=== PATIENT | female | born 1990 | race Two or more races ===

== ENCOUNTER 2020-08-26 11:03 | Emergency (ER) | payer OTHER ==
[2020-08-26] MEDS ORDERED: DIPH/PERTUSS(ACELL)/TETANUS VAC/PF 0.5 ML SYR (>=10YO) IM ONE (13:01)
--- NOTE | 2020-08-26 13:03 | ER Document Report ---
ED Medical Screen (RME) - General Chief Complaint: Ankle Injury Stated Complaint: FOOT INJURY Time Seen by Provider: 08/26/20 12:55 Mode of Arrival: Wheelchair Information source: Patient Notes: HPI; 29-year-old female presents to the emergency room with a laceration to her left foot. Patient states she dropped silverware on the floor when she accidentally kicked a knife that went across the floor cutting her foot. Bleeding is controlled. Unknown last tetanus shot. PE: Alert and oriented x3. Lungs: Clear to auscultation without rales, rhonchi, wheezes. Heart: Tachycardic without murmurs, rubs, gallops. Patient with a 2 cm laceration noted along the medial aspect of the left foot. Bleeding is controlled. I have greeted and performed a rapid initial assessment of this patient. A comprehensive ED assessment and evaluation of the patient, analysis of test results and completion of the medical decision making process will be conducted by additional ED providers. I have specifically instructed the patient or family members with the patient to immediately return to any nursing staff should anything change in the patient's condition or with their chief complaint. TRAVEL OUTSIDE OF THE [place] IN LAST 30 DAYS: No - Related Data Allergies/Adverse Reactions: cat dander Allergy (Verified 08/26/20 12:53) pineapple Allergy (Verified 08/26/20 12:53) Past Medical History - Social History Frequency of alcohol use: Occasional Physical Exam - Vital signs Vitals: Temp Pulse Resp BP Pulse Ox 98.4 F 108 H 18 141/83 H 98 08/26/20 11:11 08/26/20 11:11 08/26/20 11:11 08/26/20 11:11 08/26/20 11:11 Course - Vital Signs Vital signs: Temp Pulse Resp BP Pulse Ox 98.4 F 108 H 18 141/83 H 98 08/26/20 11:11 08/26/20 11:11 08/26/20 11:11 08/26/20 11:11 08/26/20 11:11
[2020-08-26] MEDS ORDERED: ACETAMINOPHEN 325 MG TABLET PO ONE (15:49)
[2020-08-26] MEDS ORDERED: ACETAMINOPHEN 325 MG TABLET ONE (16:58)
[2020-08-26] MEDS ORDERED: LIDOCAINE 1% INJ-PF (10 MG/ML) 30 ML SDV INFIL ONE (17:07)
[2020-08-26] MEDS ORDERED: LIDOCAINE 1% INJ-PF (10 MG/ML) 30 ML SDV INJ ONE (17:08)
--- NOTE | 2020-08-26 17:44 | ER Document Report ---
ED General - General Chief Complaint: Ankle Injury Stated Complaint: FOOT INJURY Time Seen by Provider: 08/26/20 12:55 Mode of Arrival: Wheelchair TRAVEL OUTSIDE OF THE [place] IN LAST 30 DAYS: No - HPI Notes: History as per documented by the ALETHA in triage. Sustained a minor laceration to the medial aspect of her left heel. Denies any numbness to me now. Her Tdap has been updated. She denies other injuries and denies . Otherwise her usual state of health. - Related Data Allergies/Adverse Reactions: cat dander Allergy (Verified 08/26/20 12:53) pineapple Allergy (Verified 08/26/20 12:53) Past Medical History - General Information source: Patient - Social History Smoking Status: Never Smoker Frequency of alcohol use: Occasional Family History: Reviewed & Not Pertinent - Medical History Medical History: Negative Review of Systems - Review of Systems Notes: Constitutional no fever or chills. Skin: Per history of present illness. Neuro: No numbness or tingling distal to the injury. Physical Exam - Vital signs Vitals: Temp Pulse Resp BP Pulse Ox 98.4 F 108 H 18 141/83 H 98 08/26/20 11:11 08/26/20 11:11 08/26/20 11:11 08/26/20 11:11 08/26/20 11:11 - Notes Notes: General: Well-developed well-nourished female no acute distress. Vital signs and nursing chief complaint are reviewed. Left foot: Patient has a superficial 2 cm laceration on the medial aspect of the left heel just inferior and posterior to the medial malleolus. This is horizontal and linear. Extensive subcu tissue. No deep structures are involve d. Bleeding is already been well controlled with direct pressure. Distal neurovascular intact. There is no evidence of foreign body. Course - Re-evaluation Re-evalutation: 08/26/20 17:42 The patient's wound was closed as per the procedure note. She tolerated this well. Sterile dressing was applied. Follow-up care instructions were given. - Vital Signs Vital signs: Temp Pulse Resp BP Pulse Ox 98.7 F 89 18 135/95 H 100 08/26/20 17:49 08/26/20 17:49 08/26/20 17:49 08/26/20 17:49 08/26/20 17:49 - Laboratory Results Critical Laboratory Results Reviewed: No Critical Results - Radiology Results Critical Radiology Results Reviewed: No Critical Results Procedures - Laceration/Wound Repair Left Medial Foot Time completed: 17:43 Wound length (cm): 2 Wound's Depth, Shape: Superficial, Linear Laceration pre-procedure: Sterile PPE donned, Chloraprep applied, Sterile drapes applied Anesthetic type: 1% Lidocaine Volume Anesthetic (mLs): 3 Wound explored: Clean Irrigated w/ Saline (mLs): 50 Wound Repaired With: Sutures Suture Size/Type: 4:0 Number of Sutures: 2 Layer Closure?: No Post-procedure wound care: Sterile dressing applied Complications: No Discharge - Discharge Clinical Impression: Laceration of left heel Qualifiers: Encounter type: initial encounter Qualified Code(s): S91.312A - Laceration without foreign body, left foot, initial encounter Condition: Good Disposition: HOME, SELF-CARE Instructions: Laceration Care ([facility]) Additional Instructions: You have 2 stitches. They are nylon and will not dissolve. You need to have them removed in 10 days. You can get this done at your doctor's office, and urgent care center, or you may return here. Keep your foot elevated today and tomorrow. This will help control pain and swelling. You may also use Tylenol or ibuprofen [id number] according to label directions for pain. Return to the emergency department if any other concerning symptoms develop.
[2020-08-26 17:54] VITALS: BP 135/95
== END 2020-08-26 17:59 | disposition home or self-care (01) ==
LOC: ER 11:03
DX: S91.312A Laceration without foreign body, left foot, initial encounter (principal); W22.8XXA Striking against or struck by other objects, initial encounter; Y92.000 Kitchen of unspecified non-institutional (private) residence as the place of occurrence of the external cause; Y99.8 Other external cause status
CPT/HCPCS: 90471; 90715; 99283